=== PATIENT | male | born 2000 | race Caucasian/White ===

== ENCOUNTER 2020-12-23 17:58 | Emergency (ER) | payer OTHER ==
[~2020-12-23] VITALS: Ht 170.2 cm; Wt 74.8 kg
[2020-12-23 19:37] LABS: ABSOLUTE NEUTROPHILS 2.3 thou/uL (1.4-8.2); EOSINOPHILS 2.2 % (0.0-3.0); HEMATOCRIT 41.1 % (42.0-52.0); HEMOGLOBIN 13.9 gm/dL (14.0-18.0); LYMPHOCYTES 30.4 % (24.0-44.0); MCV 88.4 fL (80.0-100.0); MONOCYTES 10.9 % (1.0-8.0); PLATELET COUNT 217 thou/uL (150-400); POLYS 55.5 % (36.0-66.0); RBC 4.64 mil/uL (4.50-6.00); RDW 13.7 % (10.5-14.5); WBC 4.2 thou/uL (4.0-11.0)
[2020-12-23 20:15] LABS: DIRECT BILIRUBIN < 0.1 mg/dL (<0.1-0.2); MAGNESIUM 2.3 mg/dL (1.8-2.4); SGOT 21 U/L (15-37); SGPT 31 U/L (30-65); TOTAL BILIRUBIN 0.5 mg/dL (0.2-1.0)
[2020-12-23 21:43] VITALS: BP 120/70
--- NOTE | 2020-12-26 07:27 | EKG ---
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 : 2000 Requested By: Haydee Jiménez Order Number: [id number] MD: Murray Jorge Measurements Intervals [place] Rate: 73 P: 77 NV: 159 QRS: 72 QRSD: 94 T: 43 QT: 372 QTc: 410 Interpretive Statements Sinus rhythm ST elev, probable normal early repol pattern Baseline wander in lead(s) V4,V5,V6 No previous ECG available for comparison Electronically Signed On 12-26-2020 7:27:47 CDT by Murray Jorge [email or web address] <ELECTRONICALLY SIGNED> By: Murray Jorge MD, [facility] 12/26/20 0727 D: 10/1804 04 Murray Jorge MD, FACC /EPI
== END 2020-12-23 21:44 | disposition home or self-care (01) ==
LOC: ER 17:58
PROVIDERS: Emergency Medicine
DX: R00.2 Palpitations (principal); Z88.1 Allergy status to other antibiotic agents; Z88.8 Allergy status to other drugs, medicaments and biological substances

== ENCOUNTER → 2021-02-01 | Outpatient (CLI) | payer OTHER | LOC: SJCVCIMAG 09:20 | PROVIDERS: ATTEND Internal Medicine Cardiovascular Disease | DX: I07.1 Rheumatic tricuspid insufficiency (principal); R00.2 Palpitations ==